=== PATIENT | female | born 1955 ===

== ENCOUNTER → 2020-10-24 | Outpatient (CLI) | payer SELFPAY ==
[~2020-10-24] MED LIST: COVID-19 VACCINE (PFIZER)/PF 30 MCG/0.3 ML VIAL IM ONE; EPINEPHRINE INJ/PF 1 MG/1 ML AMPULE IM PRN
--- OUTSIDE RECORDS SUMMARY | 2020-10-27 10:31 | XMS REPORT ---
:1955 [facility] [address] [place] [address] Care Team Providers Name Role Phone Ary Arreola A Primary Care Physician Unavailable Allergies, Adverse Reactions, Alerts This patient has no known allergies or adverse reactions. Medications Ordered Filled Start Stop Current Ordering Indication Dosage Frequency Signature Comments Components Medication Medication Date Date Medication? Clinician (SIG) Name Name Simvastatin Yes Ary Simvastati 20 MG Oral - Maxwell D.O. n 20 MG Tablet 16:24: Oral 40 Tablet TAKE 1 TABLET BY MOUTH EVERY DAY Quantity: 90 Refills: 1 Maxwell D.Ary Vences Start : 0Active Simvastatin No Simvastati 20 MG Oral n 20 MG Tablet Oral Tablet Refills: 0 Active Levothyroxi Yes Ary Levothyrox ne Sodium Maxwell D.OFrancine ine Sodium 88 MCG Oral 88 MCG Tablet Oral Tablet TAKE 1 TABLET BY MOUTH DAILY DIRECTED Quantity: 30 Refills: 5 Maxwell D.O.Ary Active amLODIPine No amLODIPine Besy-Benaze Besy-Benaz pril HCl - epril HCl 5-20 MG - 5-20 MG Oral Oral Capsule Capsule Refills: 0 Active amLODIPine Yes Ary amLODIPine Besy-Benaze Maxwell D.O. Besy-Bre z pril HCl - epril HCl 5-20 MG - 5-20 MG Oral Oral Capsule Capsule TAKE 1 CAPSULE BY MOUTH DAILY Quantity: 90 Refills: 1 Maxwell D.O.Ary Active amlodipine No 1capsul Q1D amlodipine 10 e(s) 10 mg-benazepr mg-benazep il 20 mg ril 20 mg capsule capsule Take 1 Take 1 capsule capsule every day every day by oral by oral route. route. levothyroxi No 1capsul Q1D levothyrox ne 88 mcg e(s) ine 88 mcg capsule capsule Take 1 Take 1 capsule capsule every day every day by oral by oral route. route. simvastatin No simvastati 20 mg n 20 mg tablet TAKE tablet 1 TABLET BY TAKE 1 MOUTH EVERY TABLET BY DAY MOUTH EVERY DAY Macrobid No 1capsul Q12H Macrobid 100 mg e(s) 100 mg capsule capsule Take 1 Take 1 capsule capsule every 12 every 12 hours by hours by oral route oral route for 7 days. for 7 days. amlodipine No amlodipine 5 5 mg-benazepr mg-benazep il 20 mg ril 20 mg capsule capsule TAKE 1 TAKE 1 CAPSULE BY CAPSULE BY MOUTH EVERY MOUTH DAY EVERY DAY ergocalcife No ergocalcif rol nick (vitamin (vitamin D2) 1,250 D2) 1,250 mcg (50,000 mcg unit) (50,000 capsule unit) TAKE 1 capsule CAPSULE BY TAKE 1 MOUTH EVERY CAPSULE BY WEEK MOUTH EVERY WEEK levothyroxi No levothyrox ne 88 mcg ine 88 mcg tablet TAKE tablet 1 TABLET BY TAKE 1 MOUTH EVERY TABLET BY DAY MOUTH EVERY DAY nitrofurant No nitrofuran oin toin monohydrate monohydrat /macrocryst e/macrocry als 100 mg stals 100 capsule mg capsule TAKE 1 TAKE 1 CAPSULE BY CAPSULE BY MOUTH EVERY MOUTH 12 HOURS EVERY 12 FOR 7 DAYS HOURS FOR 7 DAYS Problems Condition Condition Condition Status Onset Resolution Last Treatin g Comments Name Details Category Date Date Treatment Clinician Date Osteoporosi Osteoporosi Problem Active s s 04-01 00:00: 00 Hypothyroid Hypothyroid Problem Active ism ism 03-25 00:00: 00 Hyperlipide Hyperlipide Problem Active aubrey aubrey 03-25 00:00: 00 Hypertensiv Hypertensiv Problem Active e disorder e Disorder 03-25 00:00: 00 Procedures Procedure Date / Time Performed Performing Clinician Devic e MAMMO, screening, digital, 2020-03-25 00:00:00 bilateral Huger Teeth 1985-[birth year]02 00:00:00 Tonsillectomy 1963-03[birth year]02 00:00:00 Procedures not documented Results Test Description Test Time Test Comments Text Results Atomic Results Result Comments pap, LB + reflex to HR HPV if ASC-U 2020-03-30 00:00:00 Test Item Value Reference Range Comments thinprep Pap (test code = negative for intraepithelial lesion thinprep Pap) or malignancy. HPV high risk (test code = HPV negative high risk) HPV genotyping 16 (test code = negative HPV genotyping 16) HPV genotyping 18 (test code = negative HPV genotyping 18) disclaimer info (test code = [id number] disclaimer info) pap, LB + reflex to HR HPV if [id number] 00:00:00 Test Item Value Reference Range Comments thinprep Pap (test code = negative for intraepithelial thinprep Pap) lesion or malignancy. HPV high risk (test code = negative HPV high risk) HPV genotyping 16 (test code negative = HPV genotyping 16) HPV genotyping 18 (test code negative = HPV genotyping 18) disclaimer info (test code = [id number] disclaimer info) Bacteria identified in Urine by [id number] 00:00:00 Test Item Value Reference Range Comments urine culture,comprehensive (test code = urine final report culture,comprehensive) result 1 (test code = result 1) comment antimicrobial susceptibility (test code = comment antimicrobial susceptibility) Bacteria identified in Urine by [id number] 00:00:00 Test Item Value Reference Range Comments urine culture,comprehensive (test code = urine final report culture,comprehensive) result 1 (test code = result 1) comment antimicrobial susceptibility (test code = comment antimicrobial susceptibility) Assessments Condition Name Status Diagnosis Date Treating Clinici an Vitamin D deficiency Active 2020-07-14 07:57:56 Osteoporosis Active 2020 09:52:33 Exercises education, guidance, and Active 2020 11 :28:11 counseling Screening for osteoporosis 2020-04-01 12:17:35 Body mass index 30+ - obesity 2020-04-01 12:17:4 2 Microscopic hematuria Active 2020-03-25 09:49:34 Body mass index 25-29 - overweight Active 2020-03-25 09 :51:20 Gynecologic examination Active 2020-03-25 09:23:47 Screening for malignant neoplasm of Active 2020-03-25 0 9:23:47 cervix Screening mammography 2020-03-25 09:23:47 HLD (hyperlipidemia) Active Family history of diabetes mellitus Active Hypothyroidism Active Family history of cancer Active Hypertension Active Does not use tobacco Active Does not exercise Active Does not drink alcohol Active Encounters Start End Encounter Admission Attending Care Care Encounter Date/Time Date/Time Type Type Clinicians Facility Department ID 2020-07-13 2020-07-13 Treasure DixonTaltran [id number] 20 00:00:00 00:00:00 Lorencz, and and 1012 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 2020-04-01 2020-04-01 Treasure [facility]Talk [id number] 20 00:00:00 00:00:00 Lorencz, and and 0701 INTERPERSONAL COMMUNICATIONS PROFESSOR: [address] [address], [address], [place] [address], Ph. 2020-03-25 2020-03-25 Treasure DixonTaltran [id number] 20 00:00:00 00:00:00 Lorencz, and and 0624 INTERPERSONAL COMMUNICATIONS PROFESSOR: [address] [address] [place] [address], Ph. 2020-02-21 2020-02-21 Appointment [facility] [id number] 14 14:30:00 14:30:00 ; Ary Arreola D.O. Family History Family Member Diagnosis Comments Start Date Stop Date Child Family history of diabetes mellitus Mother Family history of cancer Father Family history of Mesothelioma Immunizations Ordered Filled Immunization Date Status Comments Refus al Reason Immunization Name Name VZIG 2019-07-02 Completed 00:00:00 influenza, 2018-11-02 Completed seasonal, 00:00:00 injectable Zoster (Zostavax) 2018-10-04 Completed 00:00:00 tetanus toxoid, 2010-03-02 Completed unspecified 00:00:00 formulation Hep B, unspecified 1995-03-02 Completed formulation 00:00:00 Tdap Unknown Completed Plan of Treatment Planned Activity Planned Date Details Comments Future Appointment 2021-03-25 00:00:00 Treasure Virgen, [facility]; [address], [place] [address] Social History Smoking Status Start Date Stop Date Former Smoker Vital Signs Vital Name Observation Time Observation Value Comments Height 2020 00:00:00 62.5 [in_i] Height 2020-04-01 00:00:00 62.5 [in_i] BMI (Body Mass Index) 2020-04-01 00:00:00 30.6 kg/m2 Body Weight 2020-04-01 00:00:00 169.8 [lb_av] BP Diastolic 2020-03-25 00:00:00 70 mm[Hg] Height 2020-03-25 00:00:00 64 [in_i] BMI (Body Mass Index) 2020-03-25 00:00:00 29.3 kg/m2 BP Systolic 2020-03-25 00:00:00 118 mm[Hg] Body Weight 2020-03-25 00:00:00 170.8 [lb_av] Hospital Discharge Instructions 1. Vitamin D deficiency Discussion Note: None recorded. Patient educational handouts: No informationavailable.1. Gynecologic examination urinalysis, dipstick 2. Screening for malignant neoplasm of cervix pap, LB + reflex to HR HPV if ASC-U 3. Screening mammography MAMMO, screening, digital, bilatera l - Routine screening mammogram, 3-D optional 4. Microscopic hematuria culture, urine 5. Body mass index 25-29 - overweight Discussion Note: None recorded. Patient educational handouts: No information available. NameDatesDetailsInstructions not documented
== END ==
LOC: EMPHEALTH 15:22
PROVIDERS: ATTEND Internal Medicine
DX: Z23 Encounter for immunization (principal)
CPT/HCPCS: 91300